=== PATIENT | female | born 1980 | race Two or more races ===

== ENCOUNTER 2021-08-22 06:12 | Emergency (ER) | payer MEDICAID ==
[~2021-08-22] VITALS: Ht 165.1 cm; Wt 108.0 kg
[2021-08-22 07:34] LABS: BASOPHILS % 0.7 % (0.0-2.0); EOSINOPHILS % 2.8 % (0.0-5.0); HEMATOCRIT. 42.8 % (36.0-48.0); HEMOGLOBIN. 14.7 g/dL (12.0-16.0); LYMPHOCYTES % 18.8 % (20.0-50.0); MEAN CORPUSCULAR HEMOGLOBIN 30.9 pg (28.0-32.0); MEAN CORPUSCULAR VOLUME 89.9 fL (81.0-99.0); MEAN PLATELET VOLUME 9.3 fl (7.4-10.4); MONOCYTES % 6.6 % (2.0-8.0); NEUTROPHILS % 71.1 % (40.0-76.0); PLATELET 277 x1000/uL (130-400); RED BLOOD CELL COUNT 4.76 mill/uL (4.2-5.4); RED CELL DISTRIBUTION WIDTH 12.8 % (11.6-14.6)
[2021-08-22 08:15] LABS: HCG SCREEN NEGATIVE
[2021-08-22 08:23] LABS: CHLORIDE 107 mEq/L (98-107)
[2021-08-22] MEDS ORDERED: TOPUD PO ×2 (09:13)
[2021-08-22] MEDS ORDERED: T3 PO (09:37)
[2021-08-22] MEDS ORDERED: IBUP-2028 PO (09:37)
[2021-08-22 09:56] VITALS: BP 127/74
[2021-08-22 10:06] LABS: PROTHROMBIN TIME 10.3 sec (9.6-11.0)
== END 2021-08-22 09:57 | disposition home or self-care (01) ==
LOC: ER 06:12
DX: S22.31XA Fracture of one rib, right side, initial encounter for closed fracture (principal); S27.9XXA Injury of unspecified intrathoracic organ, initial encounter; V49.9XXA Car occupant (driver) (passenger) injured in unspecified traffic accident, initial encounter; Y93.89 Activity, other specified; Y92.89 Other specified places as the place of occurrence of the external cause; Y99.8 Other external cause status
CPT/HCPCS: 36415; 74176; 80053; 81025; 84703; 85025; 85610; 99284; Z7610